=== PATIENT | male | born 1985 | race Caucasian/White ===

== ENCOUNTER 2016-05-08 22:25 | Emergency (ER) | payer BC ==
[~2016-05-08] VITALS: Ht 170.2 cm; Wt 69.5 kg
[~2016-05-08 22:25] MED LIST: HYDR-906 PO; IBUP-1542 PO
[2016-05-08 22:32] VITALS: Ht 170.2 cm; Wt 69.5 kg
[2016-05-09] MEDS ORDERED: HYDR-902 PO (00:03)
--- NOTE | 2016-05-09 00:20 | ERD ---
ER Documentation Chief Complaint Date/Time DATE: 05/09/16 TIME: 00:18 Chief Complaint joint pain, bodily pain x 3 months HPI Patient is a 31-year-old male who presents with total body pain and he has had for several months. Denies any injury. He has been following up with his primary care doctor who did blood work but it was all normal and he was given a wait to see his primary care doctor tomorrow however he states the pain was too much and he came today. He states first his doctor prescribed him naproxen which he tried it did not help, next he was given tramadol which also did not help. Denies fever. States he is going to follow with primary care tomorrow. ROS All systems reviewed and are negative except as per history of present illness. Medications Home Meds Active Scripts Hydrocodone/Acetaminophen (Creston 10-325 Tablet) 1 Each Tablet, 1 TAB PO Q6H Y for PAIN, #15 TAB Prov:MERCEDES BYNUM PA-C 05/09/16 Ibuprofen* (Motrin*) 600 Mg Tab, 600 MG PO Q6 for 7 Days, #30 TAB Prov:OLIVIER NAQVI 03/09/16 Hydrocodone/Acetaminophen ([place] 5-325 Tablet) 1 Each Tablet, 1 TAB PO Q6H Y for PAIN, #20 TAB Prov:SANGITA NAQVINA C 03/09/16 Allergies Allergies: Coded Allergies: No Known Allergy (Unverified , 03/09/16) PMhx/Soc History of Surgery: No Anesthesia Reaction: No Hx Neurological Disorder: No Hx Respiratory Disorders: No Hx Cardiac Disorders: No Hx Psychiatric Problems: No Hx Miscellaneous Medical Probl: No (DENIES MEDICAL AND SURGICAL HX.) Hx Alcohol Use: No Hx Substance Use: No Hx Tobacco Use: No FmHx Family History: No diabetes Physical Exam Vitals Vital Signs Date Time Temp Pulse Resp B/P Pulse Ox O2 Delivery O2 Flow Rate FiO2 05/08/16 22:32 99.3 94 20 122/67 100 Physical Exam General: well developed, well nourished, alert, nontoxic, no distress Head: normocephalic, atraumatic Neck: Supple, nontender, no lymphadenopathy, no midline tenderness Respiratory: Clear to auscaultation bilaterally, speaks in full sentences, no use of accesory muscles or labored breathing, no rales, ronchi, or wheezing Cardiovascular: RRR, No murmurs GI: soft, non tender, non distended, negative murphys sign, negative mcburneys point tenderness, no cva tenderness bilaterally, no rebound or guarding Procedures/MDM Patient has body pain. This is been going on for several months. He is afebrile vital signs are all within normal limits. He has good outpatient primary care follow-up. There is no injury. He is ambulatory without any limitations. His examination is normal. He has tried naproxen and tramadol which does not help. Discharged with a small amount of C[place] and he has plans to follow-up with his primary care doctor tomorrow. He states he has already had blood work which was unremarkable and per his primary care doctor the next step is to get MRI which she is still awaiting approval for. Recommended this patient follow up with her primary care doctor within 48 hours or return to the emergency room for any worsening of symptoms. However this time I do believe there is suitable for outpatient management. I answered all their questions and they agreed with the plan and were discharged home. Departure Diagnosis: Primary Impression: Myalgia Condition: Stable Patient Instructions: Myalgias Additional Instructions: Call your primary care doctor TOMORROW for an appointment during the next 1-2 days.See the doctor sooner or return here if your condition worsens before your appointment time. MERCEDES BYNUM PA-C May 09, 2016 00:20
== END 2016-05-09 00:17 | disposition home or self-care (01) ==
LOC: FTE 22:25
DX: M79.1 Myalgia (principal); F17.210 Nicotine dependence, cigarettes, uncomplicated
CPT/HCPCS: 99283